=== PATIENT | male | born 1950 ===

== ENCOUNTER 2020-08-28 06:23 | Day surgery (SDC) | payer MEDICARE, OTHER ==
[~2020-08-28 06:23] MED LIST: Lactated Ringers 1,000 ML IV SCH
[2020-08-28] MEDS ORDERED: fentaNYL 100 MCG/2 ML SDV ONE (06:51)
[2020-08-28] MEDS ORDERED: Propofol 200 MG/20 ML SDV ONE ×2 (06:51→08:19)
[2020-08-28] MEDS ORDERED: Midazolam 1 MG/ML 2 ML SDV ONE (06:51)
[2020-08-28] MEDS ORDERED: Lidocaine 2% 5 ML SDV ONE (06:55)
--- NOTE | 2020-08-28 07:10 | PCM.PREANE ---
Preanesthetic Assessment - Anesthesia/Transfusion/Family Hx Anesthesia History: Prior Anesthesia Without Reaction Family History of Anesthesia Reaction: No Transfusion History: No Prior Transfusion(s) - Physical Assessment NPO Status Date: 08/28/20 NPO Status Time: 00:01 Vital Signs: Last Vital Signs Temp 97.0 F 08/28/20 06:40 Pulse 69 08/28/20 06:40 Resp 16 08/28/20 06:40 BP 141/78 H 08/28/20 06:40 Pulse Ox 95 08/28/20 06:40 Height: 5 ft 9 in Weight: 285 lb ASA Class: 3 Airway Class: Mallampati = 3 ROM/Head Extension: Limited/Partial Lungs: Normal Respiratory Effort Cardiovascular: Regular Rhythm - Lab Values: Laboratory Last Values POC Glucose 140 mg/dL (70-99) H 08/28/20 06:50 - Allergies Allergies/Adverse Reactions: Allergies Allergy/AdvReac Type Severity Reaction Status Date / Time No Known Allergies Allergy Verified 08/28/20 07:08 - Anesthesia Plan Pre-Op Medication Ordered: None - Acknowledgements Anesthesia Type Planned: General Anesthesia Pt an Appropriate Candidate for the Planned Anesthesia: Yes Alternatives and Risks of Anesthesia Discussed w Pt/Guardian: Yes Pt/Guardian Understands and Agrees with Anesthesia Plan: Yes Additional Comments: npo htn no cv problems aodm janelle tob none etoh 2 beers every day morbid obesity bmi 42 no cpap par no questions PreAnesthesia Questionnaire HEENT History: Reports: Impaired Vision, Other (See Below) Other HEENT History: wears glasses, munir hearing aids Cardiovascular History: Reports: High Cholesterol, Hypertension Respiratory History: Reports: None Gastrointestinal History: Reports: Colon Polyp, GERD Genitourinary History: Reports: None Musculoskeletal History: Reports: Osteoarthritis Neurological History: Reports: None Psychiatric History: Reports: None Endocrine/Metabolic History: Reports: Diabetes, Type II, Obesity/BMI 30+ Hematologic History: Reports: None Immunologic History: Reports: None Oncologic (Cancer) History: Reports: None Dermatologic History: Reports: None - Past Surgical History Head Surgeries/Procedures: Reports: None HEENT Surgical History: Reports: None Cardiovascular Surgical History: Reports: None Respiratory Surgical History: Reports: None GI Surgical History: Reports: Bariatric Procedure, Colonoscopy Other GI Surgeries/Procedures: hx gastric bypass Male Surgical History: Reports: None Endocrine Surgical History: Reports: None Neurological Surgical History: Reports: None Musculoskeletal Surgical History: Reports: None Oncologic Surgical History: Reports: None Dermatological Surgical History: Reports: None - SUBSTANCE USE Tobacco Use Status *Q: Never Tobacco User - HOME MEDS Home Medications: Home Meds Aspirin [[place] Aspirin EC] 81 mg PO DAILY 11/05/14 [History] Sildenafil [Viagra] 50 mg PO ASDIRECTED PRN 11/05/14 [History] metFORMIN [Glucophage] 1,000 mg PO BID 11/05/14 [History] Clobetasol [Clobetasol Propionate 0.05% Cream] 1 applic TOP ASDIRECTED PRN 08/22/20 [History] Empagliflozin [Jardiance] 25 mg PO DAILY 08/22/20 [History] Fenofibrate Nanocrystallized [Fenofibrate] 200 mg PO DAILY 08/22/20 [History] Fish Oil/[place]-3 Fatty Acids [Fish Oil 1,000 MG] 1,000 mg PO DAILY 08/22/20 [History] Losartan Potassium 50 mg PO DAILY 08/22/20 [History] Meloxicam 15 mg PO DAILY 08/22/20 [History] Omeprazole 20 mg PO DAILY 08/22/20 [History] Semaglutide [Ozempic] 1 mg SUBCUT WEEKLY 08/22/20 [History] Tamsulosin HCl [Flomax] 0.4 mg PO DAILY 08/22/20 [History] atorvaSTATin Calcium [Atorvastatin Calcium] 20 mg PO DAILY 08/22/20 [History] hydroCHLOROthiazide [Hydrochlorothiazide] 12.5 mg PO DAILY 08/22/20 [History] - CURRENT (IN HOUSE) MEDS Current Meds: Current Medications Lactated Ringer's (Ringers, Lactated) 1,000 mls @ 125 mls/hr IV ASDIRECTED RAMÍREZ Last Admin: 08/28/20 07:01 Dose: 125 mls/hr Documented by: Discontinued Medications Fentanyl (Fentanyl 100 Mcg/2 Ml Sdv) Confirm Administered Dose 100 mcg .ROUTE .STK-MED ONE Stop: 08/28/20 06:52 Lidocaine (Lidocaine 2% 5 Ml Sdv) Confirm Administered Dose 5 ml .ROUTE .STK-MED ONE Stop: 08/28/20 06:56 Midazolam HCl (Midazolam 1 Mg/Ml 2 Ml Sdv) Confirm Administered Dose 2 mg .ROUTE .STK-MED ONE Stop: 08/28/20 06:52 Propofol (Propofol 200 Mg/20 Ml Sdv) Confirm Administered Dose 200 mg .ROUTE .[facility] ONE Stop: 08/28/20 06:52
--- NOTE | 2020-08-28 08:40 | PCM.OPNOTE ---
- General Post-Op/Procedure Note Date of Surgery/Procedure: 08/28/20 Operative Procedure(s): colonoscopy and polypectomy Findings: polyp at 35 cm dictation number [id number] Pre Op Diagnosis: History of colon polyps Post-Op Diagnosis: Colon polyp Primary Surgeon: Lawrence Longoria Pathology: colon polyp Complications: None Condition: Good
[2020-08-28 09:07] VITALS: BP 145/77; PULSE 70
--- NOTE | 2020-08-28 09:41 | PCM.POSTAN ---
POST ANESTHESIA ASSESSMENT - MENTAL STATUS Mental Status: Alert (no anesthetic problems), Oriented - VITAL SIGNS Vital Signs: Last Vital Signs Temp 97.5 F 08/28/20 09:00 Pulse 70 08/28/20 09:00 Resp 16 08/28/20 09:00 BP 145/77 H 08/28/20 09:00 Pulse Ox 95 08/28/20 09:00 - RESPIRATORY Respiratory Status: Respiratory Rate WNL, Airway Patent, O2 Saturation Stable - CARDIOVASCULAR CV Status: Pulse Rate WNL, Blood Pressure Stable - GASTROINTESTINAL GI Status: No Symptoms - POST OP HYDRATION Hydration Status: Adequate & Stable
--- NOTE | 2020-08-28 09:58 | PCM48HPAN ---
Post Anesthesia Note - EVALUATION WITHIN 48HRS OF ANESTHETIC Vital Signs in Normal Range: Yes Patient Participated in Evaluation: Yes Respiratory Function Stable: Yes Airway Patent: Yes Cardiovascular Function Stable: Yes Hydration Status Stable: Yes Pain Control Satisfactory: Yes Nausea and Vomiting Control Satisfactory: Yes Mental Status Recovered: Yes Vital Signs: Last Vital Signs Temp 97.5 F 08/28/20 09:00 Pulse 70 08/28/20 09:00 Resp 16 08/28/20 09:00 BP 145/77 H 08/28/20 09:00 Pulse Ox 95 08/28/20 09:00
--- NOTE | 2020-08-28 10:41 | OR ---
SURGEON: ELVIA CAZARES MD DATE OF PROCEDURE: 08/28/2020 PREOPERATIVE DIAGNOSIS: History of colon polyps. POSTOPERATIVE DIAGNOSIS: Small colon polyp at 35 cm, potentially hyperplastic. PROCEDURE PERFORMED: 1. Colonoscopy. 2. Cold biopsy polypectomy. PRIMARY SURGEON: Elvia Cazares MD ANESTHESIA: With anesthesiologist. EXTENT OF COLONOSCOPY: To the cecum. BOWEL PREP: Very good. LIMITATIONS: None. REASON FOR PROCEDURE: The patient is a pleasant 70-year-old gentleman, whose last colonoscopy was in 2014. He had one adenoma at 25 cm. Denies any blood in the stool. He denies any family history of colon cancer. PROCEDURE IN DETAIL: Physical examination was performed. The major risks and benefits associated with the procedure were explained to the patient in detail. The patient verbalized understanding and agreement of the same. The patient was then connected to appropriate monitoring devices and IV was started. EKG, pulse oximetry, blood pressure, and capnography were monitored throughout the entire procedure. Continuous oxygen and sedation were provided by the anesthesiologist. The patient was placed in left lateral decubitus position and sedation began. After adequate sedation was achieved, the rectal performed. No rectal masses or polyps felt. Now, a well-lubricated Olympus colonoscope was entered in the rectum and advanced under direct visualization to the level of the cecum. Cecum was identified by both visual and anatomic landmarks. Photographs were taken of the cecal cap. Scope was then slowly withdrawn in somewhat circular fashion looking at the color, texture, anatomy, and integrity of the mucosa from the cecum to the anal canal. The patient had a good bowel prep with just some little bit of liquid stool, which was suctioned and irrigated out for a good look at the mucosa. At about 35 cm, the patient had a smaller flat polyp. This was removed with cold biopsy polypectomy. There was good hemostasis. Appeared to be completely removed. Potentially, this might be just hyperplastic. Scope was continued to be withdrawn. Scope was retroflexed in the rectum. The patient did have some noninflamed internal hemorrhoids. Scope was then completely removed and the procedure was terminated. ENDOSCOPIC DIAGNOSIS: Small polyp at about 35 cm, potentially hyperplastic. RECOMMENDATION: Followup colonoscopy will depend on pathology. Most likely, another one in 5 to 10 years depending on pathology. He will need one sooner if he develops signs and symptoms such as change in bowel habits or blood in his stool. KAYE / MARIUSZ /[id number]
== END 2020-08-28 09:23 | disposition home or self-care (01) ==
LOC: MW.SDS 06:23
PROVIDERS: ATTEND Surgery
DX: Z12.11 Encounter for screening for malignant neoplasm of colon (principal); D12.6 Benign neoplasm of colon, unspecified; K64.8 Other hemorrhoids; E11.69 Type 2 diabetes mellitus with other specified complication; K21.9 Gastro-esophageal reflux disease without esophagitis; E66.01 Morbid (severe) obesity due to excess calories; I10 Essential (primary) hypertension; E78.00 Pure hypercholesterolemia, unspecified; Z79.82 Long term (current) use of aspirin; Z79.899 Other long term (current) drug therapy; Z79.84 Long term (current) use of oral hypoglycemic drugs; Z98.84 Bariatric surgery status; Z68.41 Body mass index [BMI] 40.0-44.9, adult
CPT/HCPCS: 45380; 82947; 88305; J2250; J2704; J3010; J7120; 00812; 99100